=== PATIENT | female | born 1975 | race Caucasian/White ===

== ENCOUNTER 2018-02-20 12:25 | Emergency (ER) | payer BC, OTHER ==
[~2018-02-20 12:25] MED LIST: Iopamidol 370 76% 100 ML VIAL ONE; Sodium Chloride 0.9% 1,000 ML BAG ONE
[2018-02-20] MEDS ORDERED: Morphine 4 MG/ML VIAL ONE (13:13)
[2018-02-20 13:22] LABS: Hemoglobin 13.2 g/dL (12.0-16.0); Mean Corpuscular HGB CONC 31.6 g/dL (32.0-36.0); Mean Corpuscular Hemoglobin 27.2 pg (27.0-31.0); Mean Platelet Volume 6.6 fL (7.4-10.4); Platelet Count 255 thou/uL (130-400); RBC Distribution Width 11.5 % (11.5-14.5); Red Blood Cell (RBC) Count 2.99 mill/uL (4.20-5.40); White Blood Cell (WBC) Count 4.9 thou/uL (4.8-10.8)
[2018-02-20 13:23] LABS: %Basophils 0.9 % (0.0-1.0); %Eosinophils 0.7 % (0.0-10.0); %Lymphocytes 29.9 % (21.0-51.0); %Monocytes 7.3 % (0.0-10.0); %Neutrophils 61.2 % (42.0-75.0); Manual Diff?? NO
[2018-02-20 13:24] LABS: #Monocytes 0.4 thou/uL (0.11-0.59); MDiff Complete? YES
[2018-02-20 13:40] LABS: ALT (SGPT) 22 U/L (8-55); AST (SGOT) 26 U/L (5-34); Albumin 4.7 g/dL (3.5-5.0); Alkaline Phosphatase 47 U/L (40-150); Anion Gap 14 mmol/L (10-20); BUN (Urea Nitrogen) 8 mg/dL (7.0-18.7); Bilirubin, Total 0.7 mg/dL (0.2-1.2); Calc. Creatinine Clearance 0 mL/min (70-130); Calcium 9.7 mg/dL (7.8-10.44); Carbon Dioxide 27 mmol/L (22-29); Chloride 103 mmol/L (98-107); Estimated GFR-MDRD 82; Globulin 2.7 g/dL (2.4-3.5); Glucose 86 mg/dL (70-105); Potassium 4.4 mmol/L (3.5-5.1); Protein, Total 7.4 g/dL (6.0-8.3); Sodium 140 mmol/L (136-145)
[2018-02-20 13:44] LABS: BHCG - Serum Negative (NEGATIVE); Pregs Control Background? CLEAR/WHITE (CLR/WHITE); Pregs Control Bar Appear? YES (CONTROL BAR)
--- NOTE | 2018-02-20 15:22 | CT ---
CT ABDOMEN AND PELVIS WITH ORAL AND IV CONTRAST: HISTORY: A 42-year-old female with left upper quadrant pain, nausea, diarrhea, no vomiting. FINDINGS: Absence of oral contrast reduces the sensitivity of the exam, particularly for evaluation of bowel. The lung bases are clear. The liver, spleen, pancreas, adrenal glands, and kidneys are normal. No c alcified gallstones are seen. No free air or lymphadenopathy is noted. There is a small amount of f ree fluid in the pelvis. Uterus is present. There is a 17 mm left ovarian cyst. No acute osseous a bnormalities are identified. IMPRESSION: 17 mm left ovarian cyst and a small amount of free fluid in the pelvis. POS: C
[2018-02-20] MEDS ORDERED: Ketorolac Tromethamine 30 MG/ML VIAL ONE (16:15)
== END 2018-02-20 16:40 | disposition home or self-care (01) ==
LOC: MADERS 12:25
DX: N83.202 Unspecified ovarian cyst, left side (principal); I45.81 Long QT syndrome; M06.9 Rheumatoid arthritis, unspecified; F32.9 Major depressive disorder, single episode, unspecified; Z79.899 Other long term (current) drug therapy
CPT/HCPCS: 36415; 74177; 80053; 83690; 84484; 84703; 85025; 93005; 96361; 96374; 96375; 96376; J1885; J2270; J7050